=== PATIENT | female | born 1995 | race Two or more races ===

== ENCOUNTER 2020-04-20 02:43 | Emergency (ER) | payer OTHER ==
[~2020-04-20] VITALS: Ht 154.9 cm; Wt 59.0 kg
[2020-04-20] MEDS ORDERED: [UNRECOGNIZED DRUG - OTHER] (03:13)
[2020-04-20] MEDS ORDERED: KETO10TA2 PO (06:43)
== END 2020-04-20 06:54 | disposition home or self-care (01) ==
LOC: ER 02:43
DX: S62.336A Displaced fracture of neck of fifth metacarpal bone, right hand, initial encounter for closed fracture (principal); W22.8XXA Striking against or struck by other objects, initial encounter; Y93.89 Activity, other specified; Y92.830 Public park as the place of occurrence of the external cause; Y99.8 Other external cause status

== ENCOUNTER 2020-10-27 20:39 | Emergency (ER) | payer OTHER ==
[~2020-10-27] VITALS: Ht 154.9 cm; Wt 59.0 kg
[~2020-10-27 20:39] MED LIST: KETO10TA2 PO; [UNRECOGNIZED DRUG - OTHER]
[2020-10-27] MEDS ORDERED: PERCOCET 5-3251 EACH PO (23:51)
== END 2020-10-28 00:27 | disposition home or self-care (01) ==
LOC: ER 20:39
DX: S62.396A Other fracture of fifth metacarpal bone, right hand, initial encounter for closed fracture (principal); W22.8XXA Striking against or struck by other objects, initial encounter; Y93.89 Activity, other specified; Y92.89 Other specified places as the place of occurrence of the external cause; Y99.8 Other external cause status

== ENCOUNTER 2023-01-07 16:53 | Emergency (ER) | payer OTHER ==
[~2023-01-07] VITALS: Ht 154.9 cm; Wt 65.8 kg
[~2023-01-07 16:53] MED LIST changes: +PERCOCET 5-3251 EACH PO
== END 2023-01-07 19:44 | disposition home or self-care (01) ==
LOC: ER 16:53
DX: M25.551 Pain in right hip (principal)